=== PATIENT | male | born 1925 | race Caucasian/White ===

== ENCOUNTER 2016-05-24 21:54 | Emergency (ER) | payer MEDICAID ==
[~2016-05-24] VITALS: Ht 167.6 cm; Wt 73.0 kg
[~2016-05-24 21:54] MED LIST: ASPI-676
[2016-05-24 22:10] VITALS: Ht 167.6 cm; Wt 73.0 kg
--- NOTE | 2016-05-24 22:49 | ERD ---
ER Documentation Chief Complaint Date/Time DATE: 05/24/16 TIME: 22:46 Chief Complaint blood in urine, painful urination x 1 hour HPI Patient is an 89-year-old male with history of unknown prostate issues and surgery who presents with hematuria since last night. He also complains of suprapubic pain. He denies taking blood thinners. He denies fever, flank pain , vomiting. He denies dysuria. ROS All systems reviewed and are negative except as per history of present illness. Medications Home Meds Active Scripts Ciprofloxacin Hcl* (Ciprofloxacin Hcl*) 500 Mg Tablet, 500 MG PO BID for 14 Days , TAB Prov:KESHAV MARCIAL MD 05/25/16 Reported Medications Aspirin (Car Child) 81 Mg Chew 10/28/11 Allergies Allergies: Coded Allergies: No Known Allergy (Unverified , 05/24/16) PMhx/Soc Past medical history: Prostate issues Past surgical history: Unknown prostate surgery, unknown abdominal surgery. Pacemaker Social history: Denies tobacco or alcohol. History of Surgery: Yes (PACEMAKER PLACEMENT 2011, ABDOMINAL SURGERY 30 YEARS AGO.) Anesthesia Reaction: No Hx Neurological Disorder: No Hx Respiratory Disorders: No Hx Cardiac Disorders: No Hx Psychiatric Problems: No Hx Miscellaneous Medical Probl: Yes (PROSTATE SURGERY) Hx Alcohol Use: No Hx Substance Use: No Hx Tobacco Use: No Smoking Status: Never smoker FmHx Family History: No coronary disease, No diabetes Physical Exam Vitals Vital Signs Date Time Temp Pulse Resp B/P Pulse Ox O2 Delivery O2 Flow Rate FiO2 05/25/16 02:00 98.3 100 20 135/72 95 Room Air 05/24/16 22:30 98.3 87 20 187/83 97 Room Air 05/24/16 22:10 98.3 94 20 213/99 96 Physical Exam Const: Alert, no acute distress Head: Atraumatic Eyes: Normal Conjunctiva, no pallor or icterus ENT: Normal External Ears, Nose and Mouth. Moist mucous membranes Neck: Full range of motion. No meningismus. Resp: Clear to auscultation bilaterally, no wheezes, no rales Cardio: Regular rate and rhythm, no murmurs Abd: Multiple large abdominal incisional scars, soft, mildly tender in suprapubic region, non distended. No guarding or rebound Skin: No petechiae or rashes Back: No midline or flank tenderness Ext: No cyanosis, trace edema bilateral lower extremities Neur: Awake and alert, cranial nerves II through XII intact bilaterally, moves and feels 4 extremities appropriately Psych: Normal Mood and Affect Result Diagram: 05/24/16230905/24/162309 Results 24 hrs Laboratory Tests Test 05/24/16 22:40 05/24/16 23:10 Urine Color DK. RED Urine Clarity BLOODY Urine pH 7.0 Urine Specific Holden <=1.005 Urine Ketones 15 Urine Nitrite POSITIVE Urine Bilirubin 2+ Urine Ictotest NEGATIVE Urine Urobilinogen >8.0 E.U./dL Urine Leukocyte Esterase 3+ Urine Microscopic RBC >200/HPF Urine Microscopic WBC 5-10/HPF Urine Squamous Epithelial Cells FEW Urine Bacteria MANY Urine Hemoglobin 3+ Urine Glucose 0.1%% Urine Total Protein 4+ White Blood Count 9.810^3/ul Red Blood Count 4.9110^6/ul Hemoglobin 14.9g/dl Hematocrit 44.2% Mean Corpuscular Volume 90.0fl Mean Corpuscular Hemoglobin 30.3pg Mean Corpuscular Hemoglobin Concent 33.7g/dl Red Cell Distribution Width 12.6% Platelet Count 68134^3/UL Mean Platelet Volume 10.9fl Neutrophils % 55.2% Lymphocytes % 32.7% Monocytes % 8.7% Eosinophils % 2.7% Basophils % 0.4% Nucleated Red Blood Cells % 0.0/100WBC Neutrophils # 5.410^3/ul Lymphocytes # 3.210^3/ul Monocytes # 0.910^3/ul Eosinophils # 0.310^3/ul Basophils # 0.010^3/ul Nucleated Red Blood Cells # 0.010^3/ul Prothrombin Time 12.6Sec Prothrombin Time Ratio 1.0 INR International Normalized Ratio 0.94 Activated Partial Thromboplast Time 32.8Sec Sodium Level 139mmol/L Potassium Level 4.2mmol/L Chloride Level 99mmol/L Carbon Dioxide Level 25mmol/L Anion Gap 19 Blood Urea Nitrogen 13mg/dl Creatinine 0.75mg/dl Glucose Level 133mg/dl Calcium Level 9.4mg/dl Current Medications Medications (Trade) Dose Ordered Sig/Kindra Route PRN Reason Start Time Stop Time Status Last Admin Dose Admin Ceftriaxone Sodium 50 ml @ 100 mls/hr ONCE ONCE IVPB 05/25/16 00:30 05/25/16 00:59 DC 05/25/16 00:50 Sodium Chloride (NS) 1,000 ml @ 1,000 mls/hr Q1H ONCE IV 05/25/16 00:30 05/25/16 01:29 DC 05/25/16 00:51 Morphine Sulfate (morphine) 4 mg ONCE STAT IV 05/25/16 00:16 05/25/16 00:18 DC 05/25/16 00:51 Morphine Sulfate 4 mg 4 mg STK-MED ONCE .ROUTE 05/25/16 00:24 05/25/16 00:25 DC Sodium Chloride (NS) 1,000 ml @ 1,000 mls/hr Q1H ONCE IV 05/25/16 01:30 05/25/16 02:29 DC 05/25/16 01:57 Procedures/MDM MDM: Patient is an 89-year-old man who presents with suprapubic pain and hematuria. A bedside ultrasound demonstrated in enlarged, full bladder. UA was consistent with UTI. Patient was afebrile without signs of pyelonephritis or sepsis. Patient was unable to void, so a Cintron catheter was placed. Multiple attempts were required due to apparent urethral strictures and prostatic enlargement. Once Cintron catheter was placed a large volume of bloody urine was drained. IV fluids were given and the urine largely cleared, with small residual blood. The patient was given ceftriaxone IV, and will be discharged with ciprofloxacin. I advised him to drink plenty of fluids, and follow-up with the urologist as soon as possible. I discussed options for attempting to contact medical clinics versus going to [facility]. I advised him on return precautions, including fever, vomiting, obstructed catheter, ongoing bleeding. I suspect that he has hemorrhagic cystitis as well as possible bleeding from the enlarged bladder causing tractional vessels. Departure Diagnosis: Primary Impression: UTI (urinary tract infection) Urinary tract infection type: acute cystitis Hematuria presence: with hematuria Qualified Code: N30.01 - Acute cystitis with hematuria Additional Impressions: Urinary obstruction Hematuria Condition: Stable KESHAV MARCIAL MD May 24, 2016 22:49
[2016-05-24 23:00] LABS: ADD UMIC YES; URINE BILIRUBIN (Dip) 2+ (NEGATIVE); URINE BLOOD (Dip) 3+ (NEGATIVE); URINE COLOR DK. RED (YELLOW); URINE KETONES (Dip) 15 (NEGATIVE); URINE LEUKOCYTE ESTERASE (Dip) 3+ (NEGATIVE); URINE NITRITE (Dip) POSITIVE (NEGATIVE); URINE TOTAL PROTEIN (Dip) 4+ (NEGATIVE); URINE UROBILINOGEN (Dip) >8.0 E.U./dL (0.1-1.0)
[2016-05-24 23:23] LABS: ADD SCAN DIFF NO
[2016-05-24 23:31] LABS: BASOPHILS % 0.4 % (0.0-2.0); EOSINOPHILS # 0.3 10^3/ul (0.0-0.5); EOSINOPHILS % 2.7 % (0.0-7.0); HEMATOCRIT 44.2 % (42.0-52.0); HEMOGLOBIN 14.9 g/dl (14.0-18.0); LYMPHOCYTES # 3.2 10^3/ul (0.8-2.9); LYMPHOCYTES % 32.7 % (15.0-51.0); MEAN CORPUSCULAR HEMOGLOBIN 30.3 pg (29.0-33.0); MEAN CORPUSCULAR HGB CONC 33.7 g/dl (32.0-37.0); MEAN PLATELET VOLUME 10.9 fl (7.4-10.4); MONOCYTE # 0.9 10^3/ul (0.3-0.9); MONOCYTES % 8.7 % (0.0-11.0); NEUTROPHIL # 5.4 10^3/ul (1.6-7.5); NEUTROPHILS % 55.2 % (39.0-77.0); PLATELET COUNT 211 10^3/UL (140-415); RED BLOOD COUNT 4.91 10^6/ul (4.70-6.10); RED CELL DISTRIBUTION WIDTH 12.6 % (11.5-14.5); WHITE BLOOD COUNT 9.8 10^3/ul (4.8-10.8)
[2016-05-24 23:32] LABS: ICTOTEST NEGATIVE (NEGATIVE)
[2016-05-24 23:36] LABS: INR 0.94; PROTIME 12.6 Sec (12.2-14.2)
[2016-05-24 23:37] LABS: PARTIAL THROMBOPLASTIN TIME 32.8 Sec (25.0-35.0)
[2016-05-24 23:38] LABS: BACTERIA,URINE MANY; SQUAMOUS EPITHELIAL CELL,UR FEW; URINE RBCS >200 /HPF (0)
[2016-05-24 23:39] LABS: POTASSIUM 4.2 mmol/L (3.5-5.1)
[2016-05-24 23:41] LABS: CREATININE 0.75 mg/dl (0.61-1.24)
[2016-05-24 23:42] LABS: CALCIUM 9.4 mg/dl (8.4-10.2)
[2016-05-25] MEDS ORDERED: morphine 4 MG/ML VIAL IV STA (00:16)
[2016-05-25] MEDS ORDERED: morphine 4 MG/ML VIAL ONE (00:24)
[2016-05-25] MEDS ORDERED: CEFTRIAXONE 2 GM/50 ML (PMX) 50 ML IVPB ONE (00:30)
[2016-05-25] MEDS ORDERED: SOD CHLORIDE 0.9% 1,000 ML IV ONE ×2 (00:30→01:30)
[2016-05-25] MEDS ORDERED: CIPR500T4 PO (02:46)
[2016-05-25 03:17] VITALS: BP 133/76; PULSE 110; RESP 20; TEMP 98.3
== END 2016-05-25 03:17 | disposition home or self-care (01) ==
LOC: E/R 21:54
DX: N30.01 Acute cystitis with hematuria (principal); N13.9 Obstructive and reflux uropathy, unspecified
CPT/HCPCS: 80048; 81001; 85025; 85610; 85730; 86850; 86870; 86900; 86901; 87086; 96361; 96365; 96375; J0696; J2270; J7030; Z7502; 81003